=== PATIENT | female | born 1980 | race Two or more races ===

== ENCOUNTER 2019-02-09 11:36 | Emergency (ER) | payer OTHER ==
[2019-02-09 11:39] VITALS: BP 104/89
[2019-02-09] MEDS ORDERED: PREDNISONE 20 MG TABLET PO ONE (12:06)
--- NOTE | 2019-02-09 12:11 | ER Document Report ---
Addendum entered and electronically signed by MICHAEL MILLIGAN PA-C 02/09/19 12:11: Discharge - Discharge Clinical Impression: Allergic dermatitis Condition: Good Disposition: HOME, SELF-CARE Additional Instructions: Your being seen today for some kind of an allergic dermatitis. Please take the steroid taper as directed. Return for any difficulty breathing, vomiting, passing out, or any other symptoms that are worrisome to you. Steroid taper should be taken as follows: Days 1-7: 60mg PO daily Days 8-14: 40mg PO daily Days 15-21: 20mg PO daily Prescriptions: Hydroxyzine HCl [Atarax 25 mg Tablet] 1 - 2 tab PO QID PRN #25 tablet PRN Reason: Prednisone [Deltasone 20 mg Tablet] 20 mg PO DAILY 21 Days #42 tablet Forms: Return to Work Original Note: HPI - HPI Patient complains to provider of: rash Time Seen by Provider: 02/09/19 11:59 Pain Level: 5 Context: Healthy 37-year-old female presents the emergency department with chief complaint of a rash x24 hours. Patient states that it started at work yesterday around her face and has since spread to her bilateral anterior arms and hands. No change in laundry soap, no change in body soap, no changes in diet. 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 She denies any scratchiness in her throat, acute shortness of breath, or throat swelling. She is talking evenly in full sentences. She states that the areas of rash are strictly on exposed skin and there is no rash where her body was covered wearing clothing. No other complaints - REPRODUCTIVE Reproductive: DENIES: : Past Medical History - Social History Smoking Status: Unknown if Ever Smoked Family History: None Vertical Provider Document - CONSTITUTIONAL Notes: PHYSICAL EXAMINATION: Reviewed vital signs and charting by RN GENERAL: Alert, interacts well. No acute distress. HEAD: Normocephalic, atraumatic. EYES: Pupils equal and round. Extraocular movements intact. ENT: Oral mucosa moist, tongue midline. NECK: Full range of motion. Trachea midline. EXTREMITIES: Moves all 4 extremities spontaneously. No edema, No cyanosis. PSYCH: Normal affect, normal mood. SKIN: Warm, dry, normal turgor. Maculopapular rash covering her hands and her anterior and lateral arms from hand up to her shirt line, blanchable. Rosa- overall rash that is slightly raised but not erythematous. - INFECTION CONTROL TRAVEL OUTSIDE OF THE [place] IN LAST 30 DAYS: No Course - Re-evaluation Re-evalutation: 02/09/19 12:09 Symptoms consistent with an allergic dermatitis as she must of had an exposure at work because there is no involvement where her skin was protected with clothing. Plan is to put her on a steroid taper and give her a prescription for Atarax. She is stable for discharge. No evidence of respiratory distress and strict return precautions were given. - Vital Signs Vital signs: Temp Pulse Resp BP Pulse Ox 97.7 F 90 20 104/89 H 97 02/09/19 11:39 02/09/19 11:39 02/09/19 11:39 02/09/19 11:39 02/09/19 11:39 Discharge - Discharge Clinical Impression: Allergic dermatitis Condition: Good Disposition: HOME, SELF-CARE Additional Instructions: Your being seen today for some kind of an allergic dermatitis. Please take the steroid taper as directed. Return for any difficulty breathing, vomiting, passing out, or any other symptoms that are worrisome to you. Steroid taper should be taken as follows: Days 1-7: 60mg PO daily Days 8-14: 40mg PO daily Days 15-21: 20mg PO daily Prescriptions: Hydroxyzine HCl [Atarax 25 mg Tablet] 1 - 2 tab PO QID PRN #25 tablet PRN Reason: Prednisone [Deltasone 20 mg Tablet] 20 mg PO DAILY 21 Days #42 tablet
== END 2019-02-09 12:15 | disposition home or self-care (01) ==
LOC: ER 11:36
DX: L23.9 Allergic contact dermatitis, unspecified cause (principal)
CPT/HCPCS: 99282; J7512

== ENCOUNTER 2019-03-26 09:19 | Emergency (ER) | payer SELFPAY ==
[2019-03-26 09:32] VITALS: BP 115/71
[2019-03-26] MEDS ORDERED: METHYLPREDNISOLONE INJ 125 MG/2 ML SDV IM ONE (11:01)
--- NOTE | 2019-03-26 11:04 | ER Document Report ---
HPI - HPI Time Seen by Provider: 03/26/19 10:35 Pain Level: 3 Notes: Patient is a 38-year-old female who presents complaining of a rash to her hands up to her forearms bilaterally that started over the past 1 to 2 days. Patient states that the rash itches and she has been seen here for the same thing. Patient was diagnosed with allergic rash at her last visit was given steroids which worked really well for her. 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 No known exposure to plants or insect bites. Denies drug allergies. No recent illness. She has not noticed any abscess or purulent discharge. Denies any headache, fever, URI, sore throat, chest pain, palpitations, syncope, cough, shortness of breath, wheeze, dyspnea, abdominal pain, nausea/vomiting/diarrhea, urinary retention, dysuria, hematuria. No known exposure to new chemicals, detergents, soaps, clothing, food. - ROS Systems Reviewed and Negative: Yes All other systems reviewed and negative - CONSTITUTIONAL Constitutional: DENIES: Fever, Chills - EENT EENT: DENIES: Sore Throat, Ear Pain, Eye problems - NEURO Neurology: DENIES: Headache, Weakness, Vision blurred, Dizzinesss / Vertigo - CARDIOVASCULAR Cardiovascular: DENIES: Chest pain - RESPIRATORY Respiratory: REPORTS: Coughing - non-productive cough. DENIES: Trouble Breathing - GASTROINTESTINAL Gastrointestinal: DENIES: Abdominal Pain, Black / Bloody Stools - URINARY Urinary: DENIES: Dysuria, Urgency, Frequency - REPRODUCTIVE Reproductive: DENIES: : - MUSCULOSKELETAL Musculoskeletal: DENIES: Extremity pain Past Medical History - Social History Smoking Status: Current Every Day Smoker Chew tobacco use (# tins/day): No Frequency of alcohol use: None Drug Abuse: None Family History: None Patient has suicidal ideation: No Patient has homicidal ideation: No Renal/ Medical History: Denies: Hx Peritoneal Dialysis Vertical Provider Document - CONSTITUTIONAL Agree With Documented VS: Yes Notes: PHYSICAL EXAMINATION: GENERAL: Well-appearing, well-nourished and in no acute distress. LUNGS: CTAB HEART: Regular rate and rhythm without murmurs, rubs, gallops. Musculoskeletal: FROM to passive/active. Strength 5+/5. Extremities: No cyanosis, clubbing, or edema b/l. Peripheral pulses 2+. Capillary refill less than 3 seconds. NEUROLOGICAL: Normal speech, normal gait. Normal sensory, motor exams PSYCH: Normal mood, normal affect. SKIN: dry, cracked skin, with mild erythema and areas of wheals present to the wrists/forearms. No other areas of rash to the body. No angioedema of the mouth/throat/tongue. No airway compromise noted. - INFECTION CONTROL TRAVEL OUTSIDE OF THE [place] IN LAST 30 DAYS: No Course - Re-evaluation Re-evalutation: 03/26/19 11:01 Patient is an afebrile, well-hydrated, 38-year-old female who presents rash to the hands and forearms suspect contact dermatitis. Vitals are acceptable without significant tachycardia, tachypnea, or hypoxia. PE is otherwise unremarkable for any neurovascular Comperm eyes, obvious tendon/leg rupture, obvious fracture/dislocation, septic joint. I question as to whether she is allergic to the gloves that she is using at work as it does resemble this type of presentation/pattern without any other known exposure to chemicals, detergents, soaps, or insect bites. Patient given Solu-Medrol today. She will be going home with steroid taper. Low suspicion for any necrotizing fasciitis, SJS, SSS, drug reaction, sepsis, meningitis, syphilis, Lyme disease, Mcintyre spotted fever, or other systemic emergent condition at this time. Patient aware that condition can change from initial presentation and he needs to monitor symptoms closely and seek medical attention with any acute changes. Recheck with your PCM in 2 to 3 days. Consider consult with dermatology. Return to the ED with any other worsening/concerning symptoms as reviewed. Patient is in agreement. Pt requested inhaler for her asthma that she will have on occasion. - Vital Signs Vital signs: Temp Pulse Resp BP Pulse Ox 98.2 F 88 16 115/71 96 03/26/19 09:32 03/26/19 09:32 03/26/19 09:32 03/26/19 09:32 03/26/19 09:32 Discharge - Discharge Clinical Impression: Rash and nonspecific skin eruption Condition: Stable Disposition: HOME, SELF-CARE Additional Instructions: Keep the skin clean Wash with soap and water Tylenol/ibuprofen if needed Triple antibiotic ointment daily Take medication as directed Monitor for any worsening symptoms Recheck with your PCM in 2-3 days Consider consult with dermatology for ongoing/worsening symptoms Return to the ED with any worsening symptoms and/or development of fever, headache, chest pain, palpitations, syncope, shortness of breath, trouble breathing, abdominal pain, n/v/d, abscess, purulent discharge, red streaks, worsening swelling, or other worsening symptoms that are concerning to you. Prescriptions: Prednisone [Deltasone 10 mg Tablet] 10 mg PO DAILY #18 tablet Forms: Smoking Cessation Education Referrals: MICHAEL LOVELL DO [ACTIVE STAFF] - Follow up as needed
== END 2019-03-26 11:18 | disposition home or self-care (01) ==
LOC: ER 09:19
DX: R21 Rash and other nonspecific skin eruption (principal); L29.8 Other pruritus; L50.9 Urticaria, unspecified; R05 Cough; F17.200 Nicotine dependence, unspecified, uncomplicated
CPT/HCPCS: 99282; 96374; J2930

== ENCOUNTER 2019-09-06 09:18 | Emergency (ER) | payer SELFPAY ==
[2019-09-06 09:22] VITALS: BP 122/86
[2019-09-06] MEDS ORDERED: ONDANSETRON 4 MG TAB.RAPDIS PO ONE (09:42)
--- NOTE | 2019-09-06 09:44 | ER Document Report ---
ED Flu Like - General Chief Complaint: Flu Symptoms Stated Complaint: SORE THROAT/NAUSEA Time Seen by Provider: 09/06/19 09:40 Notes: CHIEF COMPLAINT: Flulike symptoms for 1 day HPI: 38-year-old female presenting with sore throat, myalgia, dry cough for 1 day. Did not get a flu shot this year. Denies chest pain shortness of breath abdominal pain. Denies dysuria. No definite fever. Does complain of nausea no vomiting ROS: See HPI - all other systems were reviewed and are otherwise negative Constitutional: no fever Eyes: no drainage, no blurred vision ENT: + runny nose, + sore throat Cardiovascular: no chest pain Resp: no SOB, + cough GI: no vomiting, no diarrhea, no abdominal pain, positive nausea : no dysuria Integumentary: no rash Allergy: no hives Musculoskeletal: no extremity pain or swelling Neurological: no numbness/tingling, no weakness MEDICATIONS: I agree with the patient medications as charted by the RN. ALLERGIES: I agree with the allergies as charted by the RN. PAST MEDICAL HISTORY/PAST SURGICAL HISTORY: Reviewed and agree as charted by RN. SOCIAL HISTORY: Reviewed and agree as charted by RN. FAMILY HISTORY: No significant familial comorbid conditions directly related to patient complaint EXAM: Reviewed vital signs as charted by RN. CONSTITUTIONAL: Alert and oriented and responds appropriately to questions. Well-appearing; well-nourished, mild distress secondary to discomfort HEAD: Normocephalic; atraumatic EYES: PERRL; Conjunctivae clear, sclerae non-icteric ENT: normal nose; positive clear rhinorrhea; moist mucous membranes; pharynx without lesions noted, no uvula edema or deviation, no tonsillar hypertrophy, phonation normal NECK: Supple without meningismus; non-tender; no cervical lymphadenopathy, no masses CARD: RRR; no murmurs, no clicks, no rubs, no gallops; symmetric distal pulses RESP: Normal chest excursion without splinting or tachypnea; breath sounds clear and equal bilaterally; no wheezes, no rhonchi, no rales, pulse oximetry 98% on room air not hypoxic ABD/GI: Normal bowel sounds; non-distended; soft, non-tender, no rebound, no guarding; no palpable organomegaly or masses. BACK: The back appears normal and is non-tender to palpation, there is no CVA tenderness EXT: Normal ROM in all joints; non-tender to palpation; no cyanosis, no effusions, no edema SKIN: Normal color for age and race; warm; dry; good turgor; no acute lesions noted NEURO: Moves all extremities equally; Motor and sensory function intact PSYCH: The patient's mood and manner are appropriate. Grooming and personal hygiene are appropriate. MDM: 38-year-old female with flulike symptoms. Will check flu and strep swab. Will give Zofran for nausea TRAVEL OUTSIDE OF THE [place] IN LAST 30 DAYS: No - Related Data Allergies/Adverse Reactions: No Known Allergies Allergy (Verified 03/26/19 09:30) Past Medical History - Social History Smoking Status: Current Every Day Smoker Frequency of alcohol use: None Drug Abuse: None Family History: None Patient has suicidal ideation: No Patient has homicidal ideation: No Renal/ Medical History: Denies: Hx Peritoneal Dialysis Physical Exam - Vital signs Vitals: Temp Pulse Resp BP Pulse Ox 97.9 F 80 18 122/86 H 99 09/06/19 09:21 09/06/19 09:21 09/06/19 09:21 09/06/19 09:21 09/06/19 09:21 Course - Re-evaluation Re-evalutation: 09/06/19 10:39 Strep and flu are both negative although I suspect she likely has a viral process will treat symptomatically follow-up PCP - Vital Signs Vital signs: Temp Pulse Resp BP Pulse Ox 97.9 F 80 18 122/86 H 99 09/06/19 09:21 09/06/19 09:21 09/06/19 09:21 09/06/19 09:21 09/06/19 09:21 Discharge - Discharge Clinical Impression: Influenza-like illness Condition: Stable Disposition: HOME, SELF-CARE Additional Instructions: Motrin or Tylenol consistently for body ache or sore throat. Rapid strep test and flu test today were both negative although I suspect you likely have a viral process. Hydrate well at home. Rest. Follow-up PCP for reevaluation of symptoms if they persist Forms: Return to Work
[2019-09-06 10:27] LABS: A TYPE INFLUENZA AG NEGATIVE (NEGATIVE)
[2019-09-06 10:28] LABS: B INFLUENZA AG NEGATIVE (NEGATIVE)
== END 2019-09-06 10:45 | disposition home or self-care (01) ==
LOC: ER 09:18
DX: J11.1 Influenza due to unidentified influenza virus with other respiratory manifestations (principal); R11.0 Nausea; M79.10 Myalgia, unspecified site; R05 Cough; R09.89 Other specified symptoms and signs involving the circulatory and respiratory systems
CPT/HCPCS: 99283; 87070; 87880; 87804; S0119